=== PATIENT | male | born 2000 | race African-American/Black ===

== ENCOUNTER 2020-11-22 20:48 | Emergency (ER) | payer OTHER ==
[~2020-11-22] VITALS: Ht 188 cm; Wt 77.1 kg
[2020-11-22 20:48] VITALS: BP 110/68
== END 2020-11-23 00:23 | disposition home or self-care (01) ==
LOC: ER 20:50
DX: M25.562 Pain in left knee (principal); M25.552 Pain in left hip; M79.652 Pain in left thigh; V43.52XA Car driver injured in collision with other type car in traffic accident, initial encounter; Y93.89 Activity, other specified; Y92.488 Other paved roadways as the place of occurrence of the external cause; Y99.8 Other external cause status